=== PATIENT | female | born 2000 | race African-American/Black ===

== ENCOUNTER 2025-05-24 16:38 | Emergency (ER) | payer MEDICAID ==
[~2025-05-24] VITALS: Ht 165.1 cm; Wt 48.0 kg
[2025-05-24 16:59] VITALS: O2SAT 100
[2025-05-24] MEDS ORDERED: AMOX1TAB16 MT (19:03)
[2025-05-24 19:21] VITALS: BP 102/62; PULSE 66; RESP 20; TEMP 36.8; O2SAT 100
== END 2025-05-24 19:22 | disposition home or self-care (01) ==
LOC: ER 16:38
DX: K04.7 Periapical abscess without sinus (principal); K02.9 Dental caries, unspecified
CPT/HCPCS: 99283

== ENCOUNTER 2025-05-28 16:31 | Emergency (ER) | payer MEDICAID ==
[~2025-05-28] VITALS: Ht 165.1 cm; Wt 68.0 kg
[~2025-05-28 16:31] MED LIST: AMOX1TAB16 MT
[2025-05-28 16:36] VITALS: BP 111/58; PULSE 121; RESP 18; TEMP 38.4; O2SAT 100
[2025-05-28 18:27] LABS: HEMATOCRIT. 32.0 % (36.0-48.0); HEMOGLOBIN. 10.2 g/dL (12.0-16.0); MEAN PLATELET VOLUME 8.7 fl (7.4-10.4); PLATELET 219 x1000/uL (130-400); RED BLOOD CELL COUNT 4.09 mill/uL (4.2-5.4); RED CELL DISTRIBUTION WIDTH 18.4 % (11.6-14.6)
[2025-05-28 18:43] LABS: CREATININE 0.9 mg/dL (0.6-1.0); UREA NITROGEN BLOOD 11 mg/dL (9-23)
[2025-05-28] MEDS: AMPICILLIN SOD/SULBACTAM NA 3 G in SODIUM CHLORIDE 0.9% 100 ML IV STA (18:45)
[2025-05-28] MEDS: SODIUM CHLORIDE 0.9% (SEPSIS BOLUS) IV ONE (18:45)
[2025-05-28 18:59] LABS: BAND% 1.0 % (1.0-6.0); LYMPHOCYTES % MANUAL 5.0 % (20.0-60.0); MONOCYTES % MANUAL 14.0 % (2.0-8.0); NEUTROPHILS % MANUAL 80.0 % (45.0-75.0); PLATELET ESTIMATE NORMAL
[2025-05-28 19:42] LABS: ASPARTATE AMINOTRANSFERASE 18 IU/L (<34); BILIRUBIN DIRECT 0.1 mg/dL (<=3.0); BILIRUBIN TOTAL 0.5 mg/dL (0.1-1.0); PROTEIN TOTAL 6.5 g/dL (6.0-8.3)
[2025-05-28] MEDS: KETOROLAC 30MG/ML VIAL IM ONE (19:53)
[2025-05-28] MEDS: ACETAMINOPHEN 325MG TABLET PO ONE (19:53)
[2025-05-28] MEDS: POTASSIUM CHLORIDE 20MEQ/PACKET PO ONE (19:56)
[2025-05-28 20:37] LABS: INR 1.1
== END 2025-05-28 19:59 | disposition left against medical advice (07) ==
LOC: ER 16:35 → CMPBEDREQ 05-29 07:23
DX: K04.7 Periapical abscess without sinus (principal); R65.10 Systemic inflammatory response syndrome (SIRS) of non-infectious origin without acute organ dysfunction; E87.6 Hypokalemia; Z79.899 Other long term (current) drug therapy
CPT/HCPCS: 99284; 71045; 80076; 80048; 81025; 85025; 85610; 36415; 84145; J1885; J7030; J0295; J7050

== ENCOUNTER 2025-08-16 20:57 | Emergency (ER) | payer MEDICAID ==
[2025-08-16 21:00] VITALS: PULSE 83; RESP 16; O2SAT 100
== END 2025-08-16 21:40 | disposition left against medical advice (07) ==
LOC: ER 20:57
DX: R07.89 Other chest pain (principal)
CPT/HCPCS: 99281